=== PATIENT | female | born 2005 | race Two or more races ===

== ENCOUNTER 2024-01-02 01:03 | Emergency (ER) | payer OTHER ==
[~2024-01-02] VITALS: Ht 147.3 cm; Wt 49.9 kg
== END 2024-01-02 04:26 | disposition home or self-care (01) ==
LOC: ER 01:04 → EMR PED 01:04 → ER 01:27
DX: N75.8 Other diseases of Bartholin's gland (principal); Z88.0 Allergy status to penicillin; Z88.6 Allergy status to analgesic agent